=== PATIENT | male | born 1995 | race Caucasian/White ===

== ENCOUNTER 2020-11-27 09:25 | Emergency (ER) | payer OTHER ==
[2020-11-27 09:36] VITALS: BP 145/62; PULSE 68; TEMP 98.4; BMI 30.1
[2020-11-27] MEDS ORDERED: IBUPROFEN 600 MG TABLET (FP) PO ONE ×2 (09:56→10:00)
== END 2020-11-27 10:48 | disposition home or self-care (01) ==
LOC: JER 09:25
DX: M25.531 Pain in right wrist (principal)
CPT/HCPCS: 73110-TC-RT-FY; 73130-TC-RT-FY; 99283-25